=== PATIENT | female | born 1940 | race Asian ===

== ENCOUNTER 2022-04-18 08:46 | Outpatient (CLI) | payer MEDICARE, MEDICAID | END 2022-04-18 08:47 | disposition home or self-care (01) | LOC: BICRAD 08:46 | PROVIDERS: ATTEND Family Medicine | DX: R06.02 Shortness of breath (principal); I77.810 Thoracic aortic ectasia; I70.0 Atherosclerosis of aorta | CPT/HCPCS: 71046 ==

== ENCOUNTER 2022-05-20 18:50 | Emergency (ER) | payer MEDICARE, OTHER, MEDICAID ==
[~2022-05-20 18:50] MED LIST: Iopamidol-370 76% 500 ML 1 ML ONE
[2022-05-20 19:26] LABS: Hemoglobin 14.4 g/dL (12.0-16.0); Mean Corpuscular HGB CONC 33.6 g/dL (32.0-36.0); Mean Corpuscular Hemoglobin 32.5 pg (27.0-31.0); Mean Corpuscular Volume 96.9 fL (78.0-98.0); Mean Platelet Volume 6.9 fL (7.4-10.4); Platelet Count 175 thou/uL (130-400); RBC Distribution Width 11.3 % (11.5-14.5); Red Blood Cell (RBC) Count 4.43 mill/uL (4.20-5.40); White Blood Cell (WBC) Count 7.1 thou/uL (4.8-10.8)
[2022-05-20 19:45] LABS: Lymphocytes 31 % (21-51); MDiff Complete? YES; Monocytes 4 % (0-10); Neutrophil 38 % (42-75); Platelet Morphology Comment Appears Adequate; Polychromasia SLIGHT = 2-3 cells (100X) (0-2/hpf); Reactive Lymphocytes 26 % (0-10)
[2022-05-20 19:47] LABS: ALT (SGPT) 16 U/L (8-55); AST (SGOT) 26 U/L (5-34); Albumin 4.6 g/dL (3.4-4.8); Alkaline Phosphatase 98 U/L (40-110); Anion Gap 18 mmol/L (10-20); BUN (Urea Nitrogen) 19 mg/dL (9.8-20.1); Bilirubin, Total 0.8 mg/dL (0.2-1.2); Calc. Creatinine Clearance 0 mL/min (70-130); Calcium 9.8 mg/dL (7.8-10.44); Carbon Dioxide 21 mmol/L (23-31); Chloride 103 mmol/L (98-107); Estimated GFR 82; Globulin 3.5 g/dL (2.4-3.5); Glucose 101 mg/dL (83-110); Lipase 47 U/L (8-78); Potassium 4.2 mmol/L (3.5-5.1); Protein, Total 8.1 g/dL (5.8-8.1); Sodium 138 mmol/L (136-145)
[2022-05-20 20:12] LABS: Bacteria/HPF None Seen HPF (None Seen); Bilirubin Negative (Negative); Blood, Urine 2+ (Negative); Clarity Clear (Clear); Glucose, Urine (Dipstick) Normal (Negative); Ketone, Urine Negative (Negative); Leukocyte Negative Leu/uL (Negative); Nitrite Negative (Negative); Protein, Urine (Dipstick) Negative (Neg-Trace); Specific Gravity, Urine 1.007 (1.002-1.036); Squamous Epithelial None Seen HPF (0-3); Urobilinogen Normal mg/dL (Less than 2); WBC/HPF 0-3 HPF (0-3); pH, Urine 7.5 (5.0-9.0)
[2022-05-20] MEDS ORDERED: Aspirin Chewable 81 MG TAB ONE (20:20)
[2022-05-20 20:46] LABS: SARS-CoV-2 NAA Rapid Test Not Detected (NotDetected)
== END 2022-05-20 23:14 | disposition home or self-care (01) ==
LOC: ERS 18:50
DX: R07.9 Chest pain, unspecified (principal); R06.02 Shortness of breath; I10 Essential (primary) hypertension; E78.00 Pure hypercholesterolemia, unspecified; I25.10 Atherosclerotic heart disease of native coronary artery without angina pectoris; Z79.82 Long term (current) use of aspirin; Z79.899 Other long term (current) drug therapy; Z20.822 Contact with and (suspected) exposure to COVID-19
CPT/HCPCS: 71045; 71275; 80053; 83605; 83690; 83880; 84484 ×2; 85025; 85379; 87040; 93005; 99285; U0002; 36415; 81003; 81015; Q9967

== ENCOUNTER 2024-01-17 06:10 | Inpatient (IN) | payer MEDICARE, MEDICAID ==
[2024-01-12 15:51] VITALS: BMI 22.6
[2024-01-17] MEDS ORDERED: PROPOFOL 20 ML ONE (06:13)
[2024-01-17] MEDS ORDERED: fentaNYL PF 100 MCG/2 ML SYRINGE ONE (06:13)
[2024-01-17] MEDS ORDERED: Dexamethasone 4 mg/ml Vial ONE (06:14)
[2024-01-17] MEDS ORDERED: Ondansetron PF 4 MG/2 ML Vial ONE (06:14)
[2024-01-17] MEDS ORDERED: Bupivacaine PF 0.5% 30 ML VIAL ONE ×2 (06:30→08:38)
[2024-01-17] MEDS ORDERED: methylPREDNISolone Acetate 40 mg/ml Vial ONE (06:53)
[2024-01-17] MEDS ORDERED: Lidocaine 1% (PF) 30 ML VIAL ONE ×2 (06:53→08:38)
[2024-01-17] MEDS ORDERED: Vancomycin 1 GM/200 ML (FROZEN) BAG ONE (06:59)
[2024-01-17] MEDS ORDERED: Tranexamic Acid 1,000 MG/10 ML VIAL ONE ×2 (06:59→10:30)
[2024-01-17] MEDS ORDERED: Sodium Chloride 0.9% 100 ML ONE ×2 (06:59→07:14)
[2024-01-17] MEDS ORDERED: CEFAZOLIN 2 GM VIAL ONE (07:14)
[2024-01-17] MEDS ORDERED: PHENYLEPHRINE-NS 100 MCG/ML 10 ML SYRINGE ONE (08:12)
[2024-01-17] MEDS ORDERED: fentaNYL 50 mcg/mL 1 mL Vial SLOW IVP PRN (08:19)
[2024-01-17] MEDS ORDERED: Zolpidem Tartrate 5 MG TAB PO PRN ×2 (08:30→09:56)
[2024-01-17] MEDS ORDERED: traMADol HCl 50 MG TAB PO PRN (08:30)
[2024-01-17] MEDS ORDERED: Ropivacaine 0.2% 550 ML 550 ML NERVE BLCK SCH (08:30)
[2024-01-17] MEDS ORDERED: HYDROcodone/Acetaminophen 10/325 mg Tablet PO PRN ×2 (08:30)
[2024-01-17] MEDS ORDERED: Ondansetron PF 4 MG/2 ML Vial IVP PRN ×2 (08:30→09:56)
[2024-01-17] MEDS ORDERED: Promethazine HCl 25 MG/ML VIAL IM PRN ×2 (08:30→09:56)
[2024-01-17] MEDS ORDERED: EPINEPHrine 1 MG/ML VIAL ONE (08:38)
[2024-01-17] MEDS ORDERED: Acetaminophen 325 MG TAB PO PRN (09:56)
[2024-01-17] MEDS ORDERED: diphenhydrAMINE 25 MG CAP PO PRN (09:56)
[2024-01-17] MEDS ORDERED: ALPRAZolam 0.25 MG TAB PO PRN (09:58)
[2024-01-17] MEDS ORDERED: Pantoprazole DR 40 MG TAB PO PRN (09:58)
[2024-01-17] MEDS ORDERED: Docusate 100 MG CAP PO PRN (09:58)
[2024-01-17] MEDS ORDERED: Tranexamic Acid 1,000 MG in Sodium Chloride 0.9% 100 ML IVPB SCH (10:00)
[2024-01-17] MEDS ORDERED: fentaNYL 50 mcg/mL 1 mL Vial ONE (10:45)
[2024-01-17] MEDS: Sodium Chloride 0.9% 1,000 ML IV SCH (12:23)
[2024-01-17] MEDS: Ketorolac Tromethamine 30 MG (1 mL) VIAL IVP SCH (12:23)
[2024-01-17] MEDS: CEFAZOLIN 2 GM in Sodium Chloride 0.9% 100 ML IVPB SCH (13:38)
[2024-01-17] MEDS: Vancomycin 1.5 GM in Sodium Chloride 0.9% 250 ML 300 ML IVPB SCH (17:43)
[2024-01-17] MEDS: Ferrous Gluconate 324 MG TAB PO SCH (20:45)
[2024-01-17] MEDS: Senokot S 8.6-50 MG TAB PO SCH (20:46)
[2024-01-17] MEDS: NIFEdipine XL 60 MG ER.TAB PO SCH (20:46)
[2024-01-17] MEDS: Aspirin 81 mg Enteric Coated Tablet PO SCH (20:46)
[2024-01-17] MEDS ORDERED: Non-Formulary Item 1 EACH (Nifedipine [Nifedipine Er] 60 MG Tab.Er.24) PO SCH (21:00)
[2024-01-18 05:29] LABS: Hematocrit 33.9 % (36.0-47.0); Hemoglobin 11.3 g/dL (12.0-16.0); Mean Corpuscular HGB CONC 33.3 g/dL (32.0-36.0); Mean Corpuscular Hemoglobin 31.7 pg (27.0-31.0); Mean Corpuscular Volume 95.2 fL (78.0-98.0); Mean Platelet Volume 9.2 fL (7.4-10.4); Platelet Count 163 10x3/uL (130-400); RBC Distribution Width 12.1 % (11.5-14.5); Red Blood Cell (RBC) Count 3.56 mill/uL (4.20-5.40)
[2024-01-18] MEDS: Atorvastatin Calcium 40 MG TAB PO SCH (08:30)
[2024-01-18] MEDS: Multivit, Therapeutic 1 TAB PO SCH (08:30)
[2024-01-18] MEDS: Losartan 25 MG TAB PO SCH (08:31)
[2024-01-18] MEDS: traMADol HCl 50 MG TAB PO PRN (08:55)
[2024-01-18] MEDS ORDERED: AZILSARTAN MEDOXOMIL 80 MG PO SCH (09:00)
[2024-01-18] MEDS ORDERED: Non-Formulary Item 1 EACH (Multivit-Min/Iron/Folic/Lutein [Centrum Silver Women] 1 TABLET PO SCH (09:00)
[2024-01-18] MEDS ORDERED: Non-Formulary Item 1 EACH (Azilsartan Medoxomil [Edarbi] 80 MG Tablet) PO SCH (09:00)
[2024-01-18] MEDS ORDERED: Multivitamin W/ Minerals 1 TAB PO SCH (09:00)
[2024-01-18] MEDS ORDERED: Aspirin 81 mg Enteric Coated Tablet PO SCH (09:00)
[2024-01-19 05:44] LABS: Hematocrit 31.8 % (36.0-47.0); Hemoglobin 10.5 g/dL (12.0-16.0); Mean Platelet Volume 9.1 fL (7.4-10.4); Platelet Count 144 10x3/uL (130-400); RBC Distribution Width 12.2 % (11.5-14.5); Red Blood Cell (RBC) Count 3.28 mill/uL (4.20-5.40)
[2024-01-19 07:59] VITALS: TEMP 98.4
[2024-01-19 11:35] VITALS: BP 136/64
== END 2024-01-19 15:07 | DRG 470 ==
LOC: SDC 06:10 → SURG A 10:00 → OBSVTOIN 01-18 10:13
PROVIDERS: ADMIT Orthopaedic Surgery; ATTEND Orthopaedic Surgery
PROC: 0SRD0J9 Replacement of Left Knee Joint with Synthetic Substitute, Cemented, Open Approach (ICD-10-PCS; principal; 2024-01-17)
PROC: 3E0U33Z Introduction of Anti-inflammatory into Joints, Percutaneous Approach (ICD-10-PCS; 2024-01-17)
DX: M17.0 Bilateral primary osteoarthritis of knee (principal); D62 Acute posthemorrhagic anemia
CPT/HCPCS: 36415; 85027; A4306; C1713; C1776; C1889; J0171; J0665; J1030; J1100; J1885; J2001; J2405; J2704; J2795; J3010; J3370; J3370-JW; J3490; J7050

== ENCOUNTER 2024-10-22 08:34 | Outpatient (CLI) | payer MEDICARE, MEDICAID | END 2024-10-22 08:35 | disposition home or self-care (01) | LOC: CT 08:34 | PROVIDERS: ATTEND Orthopaedic Surgery | DX: M17.11 Unilateral primary osteoarthritis, right knee (principal) ==

== ENCOUNTER 2024-10-25 14:13 | Outpatient (CLI) | payer MEDICARE, MEDICAID ==
[2024-10-25 15:28] LABS: #Basophils 0.03 10x3/uL (0.0-0.2); %Basophils 0.4 % (0.0-1.0); %Eosinophils 1.4 % (0.0-10.0); %Lymphocytes 32.2 % (21.0-51.0); %Monocytes 7.1 % (0.0-10.0); %Neutrophils 58.6 % (42.0-75.0); Hematocrit 37.1 % (36.0-47.0); Hemoglobin 11.9 g/dL (12.0-16.0); Mean Corpuscular HGB CONC 32.1 g/dL (32.0-36.0); Mean Corpuscular Hemoglobin 31.2 pg (27.0-31.0); Mean Corpuscular Volume 97.1 fL (78.0-98.0); Mean Platelet Volume 9.4 fL (7.4-10.4); Platelet Count 178 10x3/uL (130-400); RBC Distribution Width 12.4 % (11.5-14.5); Red Blood Cell (RBC) Count 3.82 mill/uL (4.20-5.40)
[2024-10-25 15:43] LABS: Anion Gap 14 mmol/L (10-20); BUN (Urea Nitrogen) 21 mg/dL (9.8-20.1); Calc. Creatinine Clearance 0 mL/min (70-130); Calcium 9.5 mg/dL (7.8-10.44); Carbon Dioxide 25 mmol/L (23-31); Chloride 105 mmol/L (98-107); Estimated GFR 85; Glucose 95 mg/dL (83-110); Potassium 3.6 mmol/L (3.5-5.1); Sodium 140 mmol/L (136-145)
[2024-10-25 15:45] LABS: Prothrombin Time 12.8 sec (12.0-14.7)
[2024-10-25 15:49] LABS: Bacteria/HPF None Seen HPF (None Seen); Squamous Epithelial None Seen HPF (0-3); WBC/HPF 0-3 HPF (0-3)
== END 2024-10-25 14:14 | disposition home or self-care (01) ==
LOC: LABBT 14:13
PROVIDERS: ATTEND Orthopaedic Surgery
DX: Z01.818 Encounter for other preprocedural examination (principal); M17.11 Unilateral primary osteoarthritis, right knee
CPT/HCPCS: 71046; 80048; 81015; 85025; 85610; 87081

== ENCOUNTER 2024-10-30 08:37 | Observation (INO) | payer MEDICARE, MEDICAID ==
[2024-10-30] MEDS ORDERED: fentaNYL 50 mcg/mL 1 mL Vial ONE ×3 (09:20→13:11)
[2024-10-30] MEDS ORDERED: Midazolam HCl 2 mg/2 ml Vial ONE (09:20)
[2024-10-30] MEDS ORDERED: Ropivacaine 0.5% HCl/PF (150 MG/30 ML VIAL) ONE (09:20)
[2024-10-30] MEDS ORDERED: Bupivacaine 0.25% HCL 30 ML VIAL ONE (09:45)
[2024-10-30] MEDS ORDERED: CEFAZOLIN 2 GM VIAL ONE (09:46)
[2024-10-30] MEDS ORDERED: Sodium Chloride 0.9% 100 ML ONE (09:54)
[2024-10-30] MEDS ORDERED: Tranexamic Acid 1,000 MG/10 ML VIAL ONE ×2 (09:54→13:09)
[2024-10-30] MEDS ORDERED: Vancomycin 1 GM/200 ML (FROZEN) BAG ONE (09:55)
[2024-10-30] MEDS ORDERED: PROPOFOL 200 MG/20 ML VIAL ONE (10:30)
[2024-10-30] MEDS ORDERED: Ondansetron PF 4 MG/2 ML Vial IVP PRN ×2 (10:30→12:10)
[2024-10-30] MEDS ORDERED: Dexamethasone 20 MG/5 ML VIAL ONE (10:30)
[2024-10-30] MEDS ORDERED: Ropivacaine 0.2% 550 ML 550 ML NERVE BLCK SCH (10:30)
[2024-10-30] MEDS ORDERED: traMADol HCl 50 MG TAB PO PRN (10:30)
[2024-10-30] MEDS ORDERED: Promethazine HCl 25 MG/ML VIAL IM PRN ×2 (10:30→12:10)
[2024-10-30] MEDS ORDERED: fentaNYL 50 mcg/mL 1 mL Vial SLOW IVP PRN (10:30)
[2024-10-30] MEDS ORDERED: HYDROcodone/Acetaminophen 10/325 mg Tablet PO PRN (10:30)
[2024-10-30] MEDS ORDERED: fentaNYL PF 100 MCG/2 ML SYRINGE ONE ×2 (10:52→11:24)
[2024-10-30] MEDS ORDERED: ePHEDrine Sulfate 50 MG/10 ML VIAL ONE (10:52)
[2024-10-30] MEDS ORDERED: Ondansetron PF 4 MG/2 ML Vial ONE (11:51)
[2024-10-30] MEDS ORDERED: Ketorolac Tromethamine 30 MG (1 mL) VIAL ONE (11:51)
[2024-10-30] MEDS ORDERED: Zolpidem Tartrate 5 MG TAB PO PRN (12:10)
[2024-10-30] MEDS ORDERED: diphenhydrAMINE 25 MG CAP PO PRN (12:10)
[2024-10-30] MEDS ORDERED: Docusate 100 MG CAP PO PRN (12:12)
[2024-10-30] MEDS ORDERED: Tranexamic Acid 1,000 MG in Sodium Chloride 0.9% 100 ML IVPB SCH (12:15)
[2024-10-30] MEDS ORDERED: ALPRAZolam 0.5 MG TAB PO PRN (12:29)
[2024-10-30] MEDS ORDERED: Promethazine HCl 25 MG/ML VIAL ONE (13:02)
[2024-10-30 15:53] VITALS: BMI 21.5
[2024-10-30] MEDS: Ketorolac Tromethamine 30 MG (1 mL) VIAL IVP SCH (16:30)
[2024-10-30] MEDS: Sodium Chloride 0.9% 1,000 ML IV SCH (16:31)
[2024-10-30] MEDS: CEFAZOLIN 2 GM in Sodium Chloride 0.9% 100 ML IVPB SCH (17:16)
[2024-10-30] MEDS: Ferrous Gluconate 324 MG TAB PO SCH (22:31)
[2024-10-30] MEDS: Atorvastatin Calcium 40 MG TAB PO SCH (22:31)
[2024-10-30] MEDS: Aspirin 81 mg Enteric Coated Tablet PO SCH (22:31)
[2024-10-30] MEDS: Senokot S 8.6-50 MG TAB PO SCH (22:31)
[2024-10-31] MEDS: Vancomycin (BATCH) 1.5 GM in Premix 1 BAG IVPB SCH (00:22)
[2024-10-31 07:17] LABS: Hematocrit 30.6 % (36.0-47.0); Hemoglobin 9.8 g/dL (12.0-16.0); Mean Corpuscular Volume 96.8 fL (78.0-98.0); Mean Platelet Volume 9.5 fL (7.4-10.4); Platelet Count 134 10x3/uL (130-400); RBC Distribution Width 12.5 % (11.5-14.5); Red Blood Cell (RBC) Count 3.16 mill/uL (4.20-5.40)
[2024-10-31] MEDS: NIFEdipine XL 60 MG ER.TAB PO SCH (08:47)
[2024-10-31] MEDS: Losartan 25 MG TAB PO SCH (08:47)
[2024-10-31] MEDS: HYDROcodone/Acetaminophen 10/325 mg Tablet PO PRN (08:48)
[2024-10-31] MEDS: Pantoprazole 40 MG DR.TAB PO SCH (08:48)
[2024-10-31] MEDS: Multivitamin W/ Minerals 1 TAB PO SCH (08:48)
[2024-10-31] MEDS ORDERED: Aspirin 81 mg Enteric Coated Tablet PO SCH (09:00)
[2024-10-31] MEDS ORDERED: Non-Formulary Item 1 EACH (Multivit-Min/Iron/Folic/Lutein [Centrum Silver Women] 1 TABLET PO SCH (09:00)
[2024-10-31 10:16] VITALS: BMI 21.5
[2024-10-31 12:07] VITALS: BP 127/64; TEMP 99
[2024-10-31] MEDS: Acetaminophen 325 MG TAB PO PRN (13:53)
[2024-10-31] MEDS: traMADol HCl 50 MG TAB PO PRN (13:54)
== END 2024-10-31 15:33 ==
LOC: SDC 08:37 → SURG B 15:24
PROVIDERS: ADMIT Orthopaedic Surgery; ATTEND Orthopaedic Surgery
PROC: 0SRC0JZ Replacement of Right Knee Joint with Synthetic Substitute, Open Approach (ICD-10-PCS; principal; 2024-10-30)
PROC: 3E0T3BZ Introduction of Anesthetic Agent into Peripheral Nerves and Plexi, Percutaneous Approach (ICD-10-PCS; 2024-10-30)
DX: M17.11 Unilateral primary osteoarthritis, right knee (principal); I10 Essential (primary) hypertension; I25.10 Atherosclerotic heart disease of native coronary artery without angina pectoris; E78.5 Hyperlipidemia, unspecified; K21.9 Gastro-esophageal reflux disease without esophagitis; G47.00 Insomnia, unspecified; Z90.89 Acquired absence of other organs; Z79.899 Other long term (current) drug therapy; Z96.652 Presence of left artificial knee joint
CPT/HCPCS: 0055T; 27447; 64448; 36415; 85027; A4306; C1713; C1776; C1889; J0665; J1100; J1885; J2250; J2405; J2550; J2704; J2795; J3010; J3370; J7030